=== PATIENT | male | born 1980 | race Caucasian/White ===

== ENCOUNTER 2023-03-06 15:48 | Inpatient (IN) | payer SELFPAY ==
[~2023-03-06] VITALS: Ht 188 cm; Wt 130.0 kg
[2023-03-06] VITALS (401 sets, daily range): BP systolic 137–145; BP diastolic 76–90; PULSE 76–84; TEMP 97.6–98.4; O2SAT 71–100
[2023-03-06] MEDS ORDERED: MOTRIN 600600 MG/TAB PO (17:02)
[2023-03-06 17:15] LABS: BASO % 0.6 % (0.0-2.0); EOS # 0.1 K/mm3 (0.0-0.7); GRAN # 2.6 K/mm3 (1.4-6.5); GRAN % 72.6 % (42.2-75.2); HEMATOCRIT 37.9 % (42.0-52.0); LYMPH # 0.4 K/mm3 (1.2-3.4); LYMPH % 12.1 % (20.0-51.0); MEAN CELL VOLUME 90 fl (80.0-100.0); MEAN CORPUSCULAR HEMOGLOBIN 33 pg (27-31); MEAN CORPUSCULAR HGB CONC 37 g/dl (33.0-37.0); MONO # 0.4 K/mm3 (0.1-0.6); MONO % 12.1 % (1.7-9.3); RED BLOOD COUNT 4.23 M/mm3 (4.20-5.60); REDCELL DISTRIBUTION WIDTH-CV 16.5 % (11.5-14.5)
[2023-03-06 17:24] LABS: INR 1.4 (0.8-3.0)
[2023-03-06 17:26] LABS: PARTIAL THROMBOPLASTIN TIME 31.2 SECONDS (26.0-37.0)
[2023-03-06 17:28] LABS: ALBUMIN 3.5 gm/dL (3.5-5.0); BILIRUBIN,TOTAL 8.7 mg/dL (0.2-1.2); CALCIUM 8.6 mg/dL (8.4-10.2); CREATININE, serum 0.81 mg/dL (0.72-1.25); POTASSIUM 3.1 mmol/L (3.5-4.5); TOTAL PROTEIN 6.1 gm/dL (6.2-8.1)
[2023-03-06 18:08] LABS: PLATELET COUNT 12 K/mm3 (130-400)
[2023-03-06 20:11] LABS: COLLECTION METHOD CLEAN CATCH
[2023-03-06 20:25] LABS: MUCOUS Present (NOT PRESENT); SQUAMOUS EPITHELIAL 0-2 /hpf (0-10); URINE BACTERIA None Seen /hpf (NONE SEEN); URINE CALCIUM OXALATE CRYSTAL Present (NOT PRESENT)
[2023-03-06 20:29] LABS: PH 6.5 (5.0-8.5); URINE APPEARANCE Hazy (CLEAR/HAZY); URINE BLOOD 1+ (NEGATIVE); URINE COLOR Red (YELLOW); URINE GLUCOSE Negative (NEGATIVE); URINE KETONE 3+ (NEGATIVE); URINE NITRATE Negative (NEGATIVE); URINE PROTEIN(semi-quant) 2+ (NEGATIVE)
[2023-03-06 20:31] LABS: TRICYCLIC ANTIDEPRESS URINE NEGATIVE
--- NOTE | 2023-03-06 21:34 | NUR ---
PATIENT ALERT AND ORIENTED X4. PUPILS ARE EQUAL AND REACTIVE. HEART SOUNDS ARE REGULAR WITH S1 AND S2 NOTED. LUNG SOUNDS ARE CLEAR BILATERALLY IN UPPER AND LOEWR EXTREMITIES. BOWEL SOUNDS ACTIVE X4. PATIENT VOIDING IN URINAL. URINE IS DARK BLOOD TINGED BUT CLEAR. PULSES ARE PRESENT AND EQUAL BILATERALLY IN UPPER AND LOWER EXTREMITIES. PATIENT HAS NO COMPLAINTS OF PAIN AT THIS TIME. MEDICATIONS ADMINISTERED PER EMAR. CALL LIGHT WITHIN REACH.
--- NOTE | 2023-03-06 22:54 | NUR ---
PLATELET TRANSFUSION STARTED AT 2014. PLATELET TRANSFUSION COMPLETED AT 2244. PATIENT TOLERATED WELL. NO COMPLAINTS OF SOA, CP, OR ITCHING. NO SIGNS OR SYMPTOMS OF ADVERSE REACTION NOTED. WILL CONTINUE TO MONITOR PATIENT FOR S/S OF ADVERSE REACTIONS.
--- NOTE | 2023-03-06 22:56 | NUR ---
RECEIVED REPORT FROM YAMILE PIKE RN. PATIENT IN BED RESTING WITH EYES CLOSED, GIRLFRIEND AT BEDSIDE. MEDICATIONS, LABS, AND ORDERS REVIEWED AND ACKNOWLEDGED. BLOOD TRANSFUSION CONSENT SIGNED.
[2023-03-07] VITALS (681 sets, daily range): BP systolic 147–155; BP diastolic 93–96; PULSE 78–94; TEMP 98.3–98.7; O2SAT 76–100
[2023-03-07 05:34] LABS: BASO % 0.9 % (0.0-2.0); EOS # 0.1 K/mm3 (0.0-0.7); EOS % 3.2 % (0.0-4.0); GRAN # 2.6 K/mm3 (1.4-6.5); GRAN % 75.2 % (42.2-75.2); HEMATOCRIT 39.4 % (42.0-52.0); HEMOGLOBIN 14.5 g/dl (13.5-18.0); LYMPH # 0.3 K/mm3 (1.2-3.4); LYMPH % 7.2 % (20.0-51.0); MEAN CELL VOLUME 89 fl (80.0-100.0); MEAN CORPUSCULAR HEMOGLOBIN 33 pg (27-31); MEAN CORPUSCULAR HGB CONC 37 g/dl (33.0-37.0); MEAN PLATELET VOLUME 10.3 fl (7.4-10.4); MONO # 0.5 K/mm3 (0.1-0.6); MONO % 12.9 % (1.7-9.3); RED BLOOD COUNT 4.41 M/mm3 (4.20-5.60); REDCELL DISTRIBUTION WIDTH-CV 16.5 % (11.5-14.5)
[2023-03-07 05:44] LABS: PLATELET COUNT 18 K/mm3 (130-400)
[2023-03-07 05:45] LABS: INR 1.4 (0.8-3.0); PROTHROMBIN TIME 15.9 SECONDS (9.7-12.8)
[2023-03-07 05:48] LABS: ALBUMIN 3.7 gm/dL (3.5-5.0); BILIRUBIN,TOTAL 10.2 mg/dL (0.2-1.2); CALCIUM 9.2 mg/dL (8.4-10.2); CREATININE, serum 0.82 mg/dL (0.72-1.25); POTASSIUM 3.3 mmol/L (3.5-4.5); TOTAL PROTEIN 6.3 gm/dL (6.2-8.1)
--- NOTE | 2023-03-07 05:55 | NUR ---
PATIENT HAD AN UNEVENTFUL NIGHT. PATIENT SLEPT MOST OF THIS NIGHT BUT WAS AWAKE TWICE WITH COMPLAINTS OF INCREASED ANXIETY. CIWA SCORE ASSESSED AND PATIENT MEDICATED PER PROTOCOL. MEDICATION EFFECTIVE BOTH TIMES. PATIENT SLEEPING IN BED AT THIS TIME. CALL LIGHT WITHIN REACH.
--- NOTE | 2023-03-07 07:24 | NUR ---
Report received from ALICE Keller; patient currently resting in bed with fluids running through his peripheral line. Patient has no other lines or tubes in place at this time. Patient is on room air and all vital signs are within normal limits this morning with the exception of blood pressure which has been slightly elevated with the last pressure being 156/93 at 0600.
--- NOTE | 2023-03-07 12:23 | NUR ---
SW tried to complete intake, but pt was with PT. Will try back later.
[2023-03-07 14:01] LABS: HEMATOCRIT 40.5 % (42.0-52.0); HEMOGLOBIN 14.3 g/dl (13.5-18.0); MEAN CELL VOLUME 92 fl (80.0-100.0); MEAN CORPUSCULAR HEMOGLOBIN 32 pg (27-31); MEAN CORPUSCULAR HGB CONC 35 g/dl (33.0-37.0); MEAN PLATELET VOLUME 9.2 fl (7.4-10.4); RED BLOOD COUNT 4.41 M/mm3 (4.20-5.60)
[2023-03-07 14:06] LABS: PLATELET COUNT 18 K/mm3 (130-400)
[2023-03-07 14:42] LABS: ANISOCYTOSIS 2+; BAND 4 % (0-10); EOSINOPHIL 3 % (0-4); LYMPHOCYTE 12 % (20.0-51.0); NEUTROPHILS 70 % (42.0-75.2); PLATELET ESTIMATE DECREASED (NORMAL)
[2023-03-07] MEDS ORDERED: INDERAL 10MG10 MG PO (14:45)
[2023-03-07] MEDS ORDERED: PROTONIX 40MG T40 MG PO (14:45)
[2023-03-07] MEDS ORDERED: FOLIC ACID 11 MG/TA1 PO (14:46)
[2023-03-07] MEDS ORDERED: DUO-KAPS1 CAP PO (14:46)
[2023-03-07] MEDS ORDERED: NATURE'S BLEND100 M2 PO (14:47)
--- NOTE | 2023-03-07 15:30 | NUR ---
Patient being discharged home; patient taken out in wheelchair, accompanied by this nurse and Shasha, his significant other. Patient discharge instructions were gone over with patient and right hand peripheral INT was removed. Patient in stable condition upon discharge and vital signs are within normal limits. All questions were answered and all patient belongings were sent home with patient.
== END 2023-03-07 15:50 | disposition home or self-care (01) | DRG 442 ==
LOC: ICU 15:48
PROVIDERS: ADMIT Internal Medicine
PROC: 6A550Z2 Pheresis of Platelets, Single (ICD-10-PCS; principal; 2023-03-06)
DX: K72.90 Hepatic failure, unspecified without coma (principal); K76.6 Portal hypertension; K70.30 Alcoholic cirrhosis of liver without ascites; F10.10 Alcohol abuse, uncomplicated; D69.6 Thrombocytopenia, unspecified; M21.371 Foot drop, right foot; G89.29 Other chronic pain; M25.562 Pain in left knee; F12.10 Cannabis abuse, uncomplicated; F15.10 Other stimulant abuse, uncomplicated
CPT/HCPCS: J2060; J7120; P9035